=== PATIENT | male | born 1970 | race Caucasian/White ===

== ENCOUNTER 2017-05-14 18:13 | Observation (INO) | payer BC ==
[~2017-05-14] VITALS: Ht 170.2 cm; Wt 116.1 kg
[2017-05-14] MEDS ORDERED: NITROGLYCERIN SUBLINGUAL 0.4 MG BOTTLE OF 25. SL PRN ×2 (18:45→20:15)
[2017-05-14 19:24] LABS: BASO # 0.1 x10^3/uL (0.0-0.2); BASO % 1 % (0-3); EOS # 0.2 x10^3/uL (0.0-0.7); EOS % 3 % (0-3); HEMATOCRIT 43.5 % (39.0-53.0); HEMOGLOBIN 14.6 g/dL (13.0-17.5); LYMPH # 3.4 x10^3/uL (1.0-4.8); LYMPH % 41 % (24-48); MEAN CORPUSCULAR HEMOGLOBIN 29 pg (25-35); MEAN CORPUSCULAR HGB CONC 34 g/dL (31-37); MEAN CORPUSCULAR VOLUME 87 fL (79-100); MONO # 0.7 x10^3/uL (0.0-1.1); MONO % 9 % (0-9); NEUT # 3.8 x10^3uL (1.8-7.7); NEUT % 47 % (31-73); PLATELET COUNT 163 x10^3/uL (140-400); RED BLOOD COUNT 4.99 x10^6/uL (4.30-5.70); RED CELL DISTRIBUTION WIDTH 14.2 % (11.5-14.5); WHITE BLOOD COUNT 8.3 x10^3/uL (4.0-11.0)
[2017-05-14 19:45] LABS: CALCIUM 9.4 mg/dL (8.5-10.1); GFR 79.8; POTASSIUM 3.5 mmol/L (3.5-5.1)
--- NOTE | 2017-05-14 20:08 | PHYS DOC ---
Past History Past Medical History: Hypertension Past Surgical History: Other Alcohol Use: Occasionally Drug Use: None Adult General Chief Complaint Chief Complaint: CHEST PAIN HPI HPI Patient is a 46 [id number] male is being sent from the PCP office for admission for cardiac workup. Patient was discussed with Dr. Bernal. Patient states she's been having episodic chest pains for 2 weeks they're not triggered by exertion. The chest pain is typically on the left side of the chest and radiates to the left upper extremity. Patient also states he only has partial relief with nitroglycerin. Patient denies any shortness of breath, sweats, rashes, trauma Review of Systems Review of Systems Constitutional: Denies fever or chills [] HENT: Denies nasal congestion or sore throat [] Respiratory: Denies cough or shortness of breath [] Cardiovascular: No additional information not addressed in HPI [] GI: Denies abdominal pain, nausea, vomiting, Musculoskeletal: As per history of present illness Integument: Denies rash or skin lesions [] Neurologic: Denies headache, focal weakness or sensory changes [] olydipsia [] All other systems were reviewed and found to be within normal limits, except as documented in this note. Current Medications Current Medications Current Medications Medications (Trade) Dose Ordered Sig/Traci Start Time Stop Time Status Last Admin Dose Admin Morphine Sulfate (Morphine 4mg Syringe) 4 mg 1X ONCE 05/14/17 20:15 05/14/17 20:16 Nitroglycerin (Nitrostat) 0.4 mg PRN Q5MIN PRN 05/14/17 18:45 05/15/17 18:44 Allergies Allergies Allergies Coded Allergies Type Severity Reaction Last Updated Verified No Known Drug Allergies 05/14/17 No Physical Exam Physical Exam Constitutional: Well developed, well nourished, mild distress, non-toxic appearance. [] HENT: Normocephalic, atraumatic, bilateral external ears normal, oropharynx moist, Eyes:EOMI, conjunctiva normal, no discharge. [] Neck: Normal range of motion, no tenderness, supple, no stridor. No JVD Cardiovascular:Heart rate regular rhythm, no murmur, equal pulses, normal perfusion Lungs & Thorax: Bilateral breath sounds clear to auscultation, no tachypnea Abdomen: Bowel sounds normal, soft, no tenderness, no masses, no pulsatile masses. [] Skin: Warm, dry, no erythema, no rash. [] Back: No tenderness, no CVA tenderness. [] Extremities: No tenderness, no DVT ROM intact, no edema. [] Neurologic: Alert and oriented X 3, normal motor function, , no focal deficits noted. [] Psychologic: Affect normal, judgement normal, mood normal. [] Current Patient Data Vital Signs Vital Signs Date Time Temp Pulse Resp B/P (MAP) Pulse Ox O2 Delivery O2 Flow Rate FiO2 05/14/17 18:44 98.3 60 20 98 Room Air Lab Results Laboratory Tests Test 05/14/17 18:50 White Blood Count 8.3 x10^3/uL (4.0-11.0) Red Blood Count 4.99 x10^6/uL (4.30-5.70) Hemoglobin 14.6 g/dL (13.0-17.5) Hematocrit 43.5 % (39.0-53.0) Mean Corpuscular Volume 87 fL (79-100) Mean Corpuscular Hemoglobin 29 pg (25-35) Mean Corpuscular Hemoglobin Concent 34 g/dL (31-37) Red Cell Distribution Width 14.2 % (11.5-14.5) Platelet Count 163 x10^3/uL (140-400) Neutrophils (%) (Auto) 47 % (31-73) Lymphocytes (%) (Auto) 41 % (24-48) Monocytes (%) (Auto) 9 % (0-9) Eosinophils (%) (Auto) 3 % (0-3) Basophils (%) (Auto) 1 % (0-3) Neutrophils # (Auto) 3.8 x10^3uL (1.8-7.7) Lymphocytes # (Auto) 3.4 x10^3/uL (1.0-4.8) Monocytes # (Auto) 0.7 x10^3/uL (0.0-1.1) Eosinophils # (Auto) 0.2 x10^3/uL (0.0-0.7) Basophils # (Auto) 0.1 x10^3/uL (0.0-0.2) Sodium Level 141 mmol/L (136-145) Potassium Level 3.5 mmol/L (3.5-5.1) Chloride Level 106 mmol/L (98-107) Carbon Dioxide Level 27 mmol/L (21-32) Anion Gap 8 (6-14) Blood Urea Nitrogen 19 mg/dL (8-26) Creatinine 1.0 mg/dL (0.7-1.3) Estimated GFR (Cockcroft-Gault) 79.8 Glucose Level 90 mg/dL (70-99) Calcium Level 9.4 mg/dL (8.5-10.1) Troponin I Quantitative < 0.017 ng/mL (0-0.055) VS-Vyj-V-Type Natriuretic Peptide 14 pg/mL (0-124) EKG EKG 1824, 72, no STEMI, sinus rhythm[] Radiology/Procedures Radiology/Procedures No acute findings on chest x-ray[] Course & Med Decision Making Course & Med Decision Making Pertinent Labs and Imaging studies reviewed. (See chart for details) [] Dragon Disclaimer Dragon Disclaimer This electronic medical record was generated, in whole or in part, using a voice recognition dictation system. Departure Departure: Impression: Primary Impression: Chest pain Additional Impression: Unstable angina Disposition: ADMITTED INPATIENT Admitting Physician: Jason Carrillo Condition: STABLE Problem Qualifiers Vitaliy RÍOS MD May 14, 2017 20:08
[2017-05-14] MEDS ORDERED: MORPHINE SULFATE 4 MG/ML DISP.SYRIN. IV PRN (20:15)
[2017-05-14] MEDS ORDERED: MORPHINE SULFATE 4 MG/ML DISP.SYRIN. IV ONE (20:15)
[2017-05-14] MEDS: ONDANSETRON PF 4 MG/2 ML VIAL. IV PRN (20:26)
[2017-05-14] MEDS: ACETAMINOPHEN 325 MG TABLET PO PRN (20:27)
[2017-05-14 22:00] VITALS: BP 137/93
[2017-05-14] MEDS ORDERED: VERA40TA PO (23:02)
[2017-05-14] MEDS ORDERED: NITR0.4T22 SL (23:02)
[2017-05-14] MEDS ORDERED: LISI-334 PO (23:02)
[2017-05-14] MEDS ORDERED: ASPI1TAB31 PO (23:02)
[2017-05-14] MEDS ORDERED: ASPIRIN 325 MG TABLET PO ONE (23:15)
[2017-05-15] MEDS: ONDANSETRON PF 4 MG/2 ML VIAL. IV PRN (00:09)
--- NOTE | 2017-05-15 00:09 | EKG ---
[address] [address] Test Date: 2017-05-14 Test Time: 18:23:56 Pat Name: VINITA DURANT Department: Room: 117 A Gender: M Shoe Lacer: RAKESH : 1970 Requested By: Vitaliy RÍOS Order Number: [id number] Reading MD: Malik Shaw Measurements Intervals [place] Rate: 72 P: 50 RI: 154 QRS: 85 QRSD: 104 T: 22 QT: 384 QTc: 422 Interpretive Statements SINUS RHYTHM Electronically Signed On 05-21-2017 14:46:07 CDT by Malik Shaw
[2017-05-15 06:18] VITALS: BP 138/87
[2017-05-15 07:15] LABS: BASO % 1 % (0-3); EOS # 0.3 x10^3/uL (0.0-0.7); EOS % 4 % (0-3); HEMATOCRIT 44.9 % (39.0-53.0); HEMOGLOBIN 14.9 g/dL (13.0-17.5); LYMPH # 2.6 x10^3/uL (1.0-4.8); LYMPH % 40 % (24-48); MEAN CORPUSCULAR HEMOGLOBIN 30 pg (25-35); MEAN CORPUSCULAR HGB CONC 33 g/dL (31-37); MEAN CORPUSCULAR VOLUME 89 fL (79-100); MONO # 0.6 x10^3/uL (0.0-1.1); MONO % 10 % (0-9); NEUT # 2.9 x10^3uL (1.8-7.7); NEUT % 46 % (31-73); PLATELET COUNT 151 x10^3/uL (140-400); RED BLOOD COUNT 5.05 x10^6/uL (4.30-5.70); RED CELL DISTRIBUTION WIDTH 14.3 % (11.5-14.5); WHITE BLOOD COUNT 6.5 x10^3/uL (4.0-11.0)
[2017-05-15 07:21] LABS: CALCIUM 8.8 mg/dL (8.5-10.1); CREATININE 1.1 mg/dL (0.7-1.3); GFR 71.4; POTASSIUM 4.3 mmol/L (3.5-5.1)
[2017-05-15] MEDS: ACETAMINOPHEN 325 MG TABLET PO PRN (08:22)
--- NOTE | 2017-05-15 08:41 | RAD ---
PA and lateral chest. History: Chest pain PA and lateral views were taken of the chest. Lungs are clear. Heart is normal in size without heart failure. There is no effusion. Impression: 1. No acute chest disease.
--- NOTE | 2017-05-15 09:10 | PDOC2 ---
CONSULT Date of Admission DATE: 05/15/17 TIME: 09:07 Reason for Consult: chest pain Problem List Problems Medical Problems: (1) Chest pain Status: Acute (2) Unstable angina Status: Acute History of Present Illness Mr Monae is a 46 year old male who presents with complaints of chest pain and pressure in his left chest, radiating to his left shoulder, and up his left neck. He reports the pain started 2 weeks ago and has waxed and waned but never resolved completely. He was in [facility] at the [facility] and reports the pain was so severe he was unable to climb the steps. He had associated shortness of breath. The pain improved with 20 minutes rest but again never resolved completely. He denies any other exacerbating or relieving factors. He does state he had some relief with Nitrates but again the pain did not completely resolve. He denies congestive symptoms, palpitations, lightheadedness or syncope. Cardiovascular: HTN Pulmonary: Other (sleep apnea on CPAP, recent bronchitis) GI: Other (pancreatitis) Musculoskeletal: Osteoarthritis Past Surgical History right shoulder surgery, hernia repair x 2 Family History Mother with diabetes, GMother with CAD Social History no tobacco, significant ETOH, or illicit drug use Current Medications Current Medications Nitroglycerin (Nitrostat) 0.4 mg PRN Q5MIN PRN SL CP RATING > 1/10; Start at 18:45; Stop 05/15/17 at 18:44; Status Cancel Morphine Sulfate (Morphine 4mg Syringe) 4 mg 1X ONCE IV Last administered on at 20:26; Start 05/14/17 at 20:15; Stop 05/14/17 at 20:16; Status DC Ondansetron HCl (Zofran) 4 mg PRN Q4HRS PRN IV NAUSEA/VOMITING Last administered on 05/15/17at 00:09; Start 05/14/17 at 20:15; Stop 05/15/17 at 20:14 Morphine Sulfate (Morphine 4mg Syringe) 2 mg PRN Q2HR PRN IV PAIN Last administered on 05/14/17at 22:35; Start 05/14/17 at 20:15; Stop 05/15/17 at 20:14 Acetaminophen (Tylenol) 650 mg PRN Q4HRS PRN PO FEVER Last administered on 05/15at 08:22; Start 05/14/17 at 20:15; Stop 05/15/17 at 20:14 Nitroglycerin (Nitrostat) 0.4 mg PRN Q5MIN PRN SL CHEST PAIN; Start 05/14/17 at 20:15; Stop 05/15/17 at 20:14 Aspirin (Roel Aspirin) 325 mg 1X ONCE PO Last administered on 05/15/17at 00:10 ; Start 05/14/17 at 23:15; Stop 05/14/17 at 23:16; Status DC Active Scripts Active Reported Excedrin Migraine Caplet (Aspirin/Acetaminophen/Caffeine) 1 Each Tablet 1 Each PO PRN BID PRN NITROGLYCERIN SubLingual (Nitroglycerin) 0.4 Mg Tab.subl 0.4 Mg SL PRN Q5MIN PRN Verapamil Hcl 40 Mg Tablet 10 Mg PO TID Lisinopril 20 Mg Tablet 20 Mg PO DAILY Allergies: Coded Allergies: No Known Drug Allergies (Unverified , 05/14/17) Review of System as per HPI or negative General: Alert, Oriented X3, Cooperative, mild distress HEENT: Atraumatic, EOMI, Mucous membr. moist/pink Lungs: Clear to auscultation, Normal air movement Heart: Regular rate, Normal S1, Normal S2 Abdomen: Normal bowel sounds, Soft Extremities: No cyanosis, No edema, Normal pulses Neuro: Normal speech Psych/Mental Status: Mental status NL, Mood NL VITALS Vital Signs Date Time Temp Pulse Resp B/P (MAP) Pulse Ox O2 Delivery O2 Flow Rate FiO2 05/15/17 06:18 97.8 78 18 138/87 (104) 95 Room Air 05/14/17 23:30 2.0 Labs Laboratory Tests Test 05/14/17 18:50 05/14/17 23:00 05/15/17 07:01 White Blood Count 8.3 x10^3/uL (4.0-11.0) 6.5 x10^3/uL (4.0-11.0) Red Blood Count 4.99 x10^6/uL (4.30-5.70) 5.05 x10^6/uL (4.30-5.70) Hemoglobin 14.6 g/dL (13.0-17.5) 14.9 g/dL (13.0-17.5) Hematocrit 43.5 % (39.0-53.0) 44.9 % (39.0-53.0) Mean Corpuscular Volume 87 fL (79-100) 89 fL (79-100) Mean Corpuscular Hemoglobin 29 pg (25-35) 30 pg (25-35) Mean Corpuscular Hemoglobin Concent 34 g/dL (31-37) 33 g/dL (31-37) Red Cell Distribution Width 14.2 % (11.5-14.5) 14.3 % (11.5-14.5) Platelet Count 163 x10^3/uL (140-400) 151 x10^3/uL (140-400) Neutrophils (%) (Auto) 47 % (31-73) 46 % (31-73) Lymphocytes (%) (Auto) 41 % (24-48) 40 % (24-48) Monocytes (%) (Auto) 9 % (0-9) 10 % (0-9) Eosinophils (%) (Auto) 3 % (0-3) 4 % (0-3) Basophils (%) (Auto) 1 % (0-3) 1 % (0-3) Neutrophils # (Auto) 3.8 x10^3uL (1.8-7.7) 2.9 x10^3uL (1.8-7.7) Lymphocytes # (Auto) 3.4 x10^3/uL (1.0-4.8) 2.6 x10^3/uL (1.0-4.8) Monocytes # (Auto) 0.7 x10^3/uL (0.0-1.1) 0.6 x10^3/uL (0.0-1.1) Eosinophils # (Auto) 0.2 x10^3/uL (0.0-0.7) 0.3 x10^3/uL (0.0-0.7) Basophils # (Auto) 0.1 x10^3/uL (0.0-0.2) 0.0 x10^3/uL (0.0-0.2) Sodium Level 141 mmol/L (136-145) 140 mmol/L (136-145) Potassium Level 3.5 mmol/L (3.5-5.1) 4.3 mmol/L (3.5-5.1) Chloride Level 106 mmol/L (98-107) 104 mmol/L (98-107) Carbon Dioxide Level 27 mmol/L (21-32) 28 mmol/L (21-32) Anion Gap 8 (6-14) 8 (6-14) Blood Urea Nitrogen 19 mg/dL (8-26) 17 mg/dL (8-26) Creatinine 1.0 mg/dL (0.7-1.3) 1.1 mg/dL (0.7-1.3) Estimated GFR (Cockcroft-Gault) 79.8 71.4 Glucose Level 90 mg/dL (70-99) 110 mg/dL (70-99) Calcium Level 9.4 mg/dL (8.5-10.1) 8.8 mg/dL (8.5-10.1) Troponin I Quantitative < 0.017 ng/mL (0-0.055) < 0.017 ng/mL (0-0.055) < 0.017 ng/mL (0-0.055) GX-Lty-R-Type Natriuretic Peptide 14 pg/mL (0-124) D-Dimer (Vidhya) 0.33 mg/L (0.00-0.50) Images EKG - sinus rhythm without acute ischemic changes CXR - no acute disease Assessment/Plan 1. Chest pain with mixed features, persistent with negative cardiac enzymes - check Echo. analgesics. MPI vs cath depending on response to medications. 2. hypertension - resume home meds 3. unknown lipid status - check lipids 4. obesity - weight reduction encouraged Problems: BRINDA KRISHNAMURTHY APRN May 15, 2017 09:10
[2017-05-15] MEDS ORDERED: KETOROLAC 30 MG/ML VIAL. IV ONE (09:30)
[2017-05-15 09:43] VITALS: BP 145/70
[2017-05-15 16:05] VITALS: BP 122/85
[2017-05-15] MEDS: traMADol 50 MG TABLET PO PRN (17:22)
[2017-05-15 19:25] VITALS: BP 115/80
[2017-05-15 23:08] VITALS: BP_SYST 121; BP_SYST 129; BP_DIAS 78; BP_DIAS 80
--- NOTE | 2017-05-16 01:15 | PN ---
DATE: 05/14/2017 SUBJECTIVE: The patient in with chest pain. The patient had been seen by Cardiology and they made further recommendations on his situation. OBJECTIVE: VITAL SIGNS: Otherwise, the patient's blood pressure 120/80, respiration 16, pulse 75, afebrile. The patient continues to have pain in his left chest wall radiating to his back and down his left arm. LUNGS: Diminished, but clear. CARDIOVASCULAR: Regular sinus rhythm. ABDOMEN: Soft, protuberant, and nontender. IMPRESSION: Probable angina, chest pain. PLAN: As above. CORY JETT MD DR: AIDAN/halie JOB#: [id number] / [id number]
[2017-05-16 05:59] VITALS: BP 130/81
[2017-05-16] MEDS ORDERED: ASPIRIN 325 MG TABLET PO SCH (08:00)
[2017-05-16] MEDS: traMADol 50 MG TABLET PO PRN (08:22)
[2017-05-16 10:46] VITALS: BP 140/89
[2017-05-16 10:49] VITALS: BP 140/89
[2017-05-16] MEDS ORDERED: KETO10TA PO (12:12)
--- NOTE | 2017-05-16 18:08 | DS ---
DATE OF DISCHARGE: 05/16/2017 HOSPITAL COURSE: Came in with chest pain, chest wall radiating down the left arm. The patient made good progress. His cardiac enzymes were negative. Dr. Macdonald saw, we can probably discharge him if his situation was unremarkable. His cholesterol was elevated at 215. He had an LDL of 142. The patient will be started on some form of a statin drug. He will follow up with Dr. Macdonald and Dr. Neff for further evaluation and make further evaluation on that. Chest x-ray was unremarkable. Cardiac enzymes were unremarkable. IMPRESSION: Therefore of chest pain, possible angina, hypercholesterolemia. See EMRAD. 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 CORY JETT MD DR: AIDAN/halie JOB#: [id number] / [id number]
== END 2017-05-16 13:00 | disposition home or self-care (01) ==
LOC: ER 18:13 → INTOOBSV 20:03 → 1 SOUTH 20:03
PROVIDERS: ADMIT Family Medicine; ATTEND Family Medicine
DX: I20.0 Unstable angina (principal); E78.00 Pure hypercholesterolemia, unspecified; I10 Essential (primary) hypertension; R05 Cough; R07.82 Intercostal pain; Z87.891 Personal history of nicotine dependence
CPT/HCPCS: 36415; 71046; 80048; 80061; 83880; 84484; 85025; 85379; 93005; 96374; 96375; 96376; 99285; G0378; J1885; J2270; J2405; G0379

== ENCOUNTER → 2017-06-03 | Outpatient (CLI) | payer BC ==
[2017-05-16 10:49] VITALS: BP 140/89
[~2017-06-03] MED LIST: ASPI1TAB31 PO; KETO10TA PO; LISI-334 PO; NITR0.4T22 SL; VERA40TA PO
[2017-06-03 15:48] LABS: BASO % 1 % (0-3); EOS # 0.1 x10^3/uL (0.0-0.7); EOS % 2 % (0-3); HEMATOCRIT 45.1 % (39.0-53.0); HEMOGLOBIN 15.2 g/dL (13.0-17.5); LYMPH % 45 % (24-48); MEAN CORPUSCULAR HEMOGLOBIN 30 pg (25-35); MEAN CORPUSCULAR HGB CONC 34 g/dL (31-37); MEAN CORPUSCULAR VOLUME 88 fL (79-100); MONO # 0.6 x10^3/uL (0.0-1.1); MONO % 10 % (0-9); NEUT # 2.8 x10^3uL (1.8-7.7); NEUT % 42 % (31-73); PLATELET COUNT 172 x10^3/uL (140-400); RED BLOOD COUNT 5.14 x10^6/uL (4.30-5.70); RED CELL DISTRIBUTION WIDTH 14.2 % (11.5-14.5); WHITE BLOOD COUNT 6.5 x10^3/uL (4.0-11.0)
[2017-06-03 16:01] LABS: CALCIUM 9.4 mg/dL (8.5-10.1); CREATININE 1.1 mg/dL (0.7-1.3); GFR 71.4; POTASSIUM 4.3 mmol/L (3.5-5.1)
== END | disposition home or self-care (01) ==
LOC: LAB 15:20
PROVIDERS: ATTEND Internal Medicine Cardiovascular Disease
DX: I10 Essential (primary) hypertension (principal)
CPT/HCPCS: 36415; 80048; 83735; 85025; 85610; 85730